=== PATIENT | female | born 1995 | race Caucasian/White ===

== ENCOUNTER 2024-10-02 23:39 | Observation (INO) | payer OTHER ==
[2024-10-03 00:03] VITALS: RESP 18; TEMP 98.4; BMI 21.7
[2024-10-03] MEDS: LACTATED RINGERS SOLUTION 1000 ML INFUS.BAG IV ONE (00:46)
[2024-10-03 00:50] LABS: HEMATOCRIT 44.5 % (32.4-45.2); HEMOGLOBIN 15.3 GM/dL (10.7-15.3); MCH 31.6 pg (25.7-33.7); MCHC 34.3 g/dl (32.0-36.0); MEAN PLT VOLUME 9.8 fl (7.5-11.1); PLATELET COUNT 178 10^3/uL (134-434); RBC 4.84 M/mm3 (3.60-5.2); RDW 12.8 % (11.6-15.6); WHITE BLOOD COUNT 10.5 K/mm3 (4.0-10.0)
[2024-10-03] MEDS ORDERED: ACETAMINOPHEN INJECTION 100 ML ONE (01:00)
[2024-10-03] MEDS: METOCLOPRAMIDE HCL INJECTION 10 MG/2 ML VIAL IVPB ONE (01:05)
[2024-10-03] MEDS: FAMOTIDINE 20 MG/50 ML IVPB 20 MG/50 ML MG IVPB ONE (01:05)
[2024-10-03] MEDS: ACETAMINOPHEN 1000 MG/100 ML BAG IVPB ONE (01:05)
[2024-10-03] MEDS: SODIUM CHLORIDE 0.9% 500 ML INFUS.BAG IV ONE (01:05)
[2024-10-03] MEDS: ONDANSETRON 4 MG/2 ML VIAL IVPUSH ONE (01:05)
[2024-10-03 01:20] LABS: ALBUMIN 4.1 g/dl (3.4-5.0); CALCIUM 9.6 mg/dL (8.5-10.1)
[2024-10-03 01:21] LABS: BLOOD UREA NITROGEN 21.7 mg/dL (7-18); MAGNESIUM 1.8 mg/dL (1.8-2.4)
[2024-10-03 01:24] LABS: CREATININE 1.1 mg/dL (0.55-1.3)
[2024-10-03 01:25] LABS: BILIRUBIN,TOTAL 1.2 mg/dL (0.2-1); TOT PROT 7.4 g/dl (6.4-8.2)
[2024-10-03 01:33] LABS: PHOSPHOROUS 0.7 mg/dL (2.5-4.9)
[2024-10-03] MEDS ORDERED: MAG HYDROX/AL HYDROX/SIMETH 30 ML UNIT-DOSE CUP ONE (02:07)
[2024-10-03] MEDS: MAG HYDROX/AL HYDROX/SIMETH 30 ML UNIT-DOSE CUP PO ONE (02:12)
[2024-10-03] MEDS: SODIUM PHOSPHATE - 15 MM in SODIUM CHLORIDE 250 ML IVPB ONE (02:39)
[2024-10-03 04:34] LABS: BILIRUBIN,DIRECT 0.3 mg/dL (0.0-0.2)
[2024-10-03 05:06] VITALS: BP 95/47; PULSE 68
[2024-10-03 07:40] LABS: HEMOGLOBIN 12.9 GM/dL (10.7-15.3); MCH 32.7 pg (25.7-33.7); MCHC 35.7 g/dl (32.0-36.0); MEAN CELL VOLUME 91.7 fl (80-96); MEAN PLT VOLUME 10.4 fl (7.5-11.1); PLATELET COUNT 147 10^3/uL (134-434); RBC 3.93 M/mm3 (3.60-5.2); RDW 12.5 % (11.6-15.6); WHITE BLOOD COUNT 5.8 K/mm3 (4.0-10.0)
[2024-10-03 08:00] LABS: POTASSIUM 3.7 mmol/L (3.5-5.1)
[2024-10-03 08:03] LABS: BLOOD UREA NITROGEN 18.4 mg/dL (7-18); MAGNESIUM 1.7 mg/dL (1.8-2.4)
[2024-10-03 08:06] LABS: CREATININE 0.8 mg/dL (0.55-1.3); PHOSPHOROUS 4.9 mg/dL (2.5-4.9)
[2024-10-03 08:07] LABS: BILIRUBIN,TOTAL 0.8 mg/dL (0.2-1)
[2024-10-03 08:08] LABS: TOT PROT 5.9 g/dl (6.4-8.2)
[2024-10-03 08:11] LABS: ALBUMIN 3.3 g/dl (3.4-5.0); CALCIUM 8.1 mg/dL (8.5-10.1)
[2024-10-03] MEDS: MAGNESIUM SULFATE IN WATER 2 GM/50 ML IVPB IVPB ONE (09:04)
[2024-10-03] MEDS ORDERED: MAGNESIUM OXIDE 400 MG TABLET (FP) PO ONE (09:09)
[2024-10-03] MEDS ORDERED: LEVOTHYROXINE NA 125 MCG TABLET (FP) PO SCH (10:00)
[2024-10-03] MEDS ORDERED: ESCITALOPRAM OXALATE 10 MG TABLET PO SCH (10:00)
[2024-10-03] MEDS ORDERED: ENOXAPARIN NA (PORCINE) 40 MG/0.4 ML DISP.SYRIN SQ SCH (10:00)
[2024-10-04] MEDS ORDERED: LEVOTHYROXINE NA 100 MCG TABLET (FP) PO SCH (10:00)
== END 2024-10-03 09:59 | disposition home or self-care (01) ==
LOC: JER 23:39 → JERBED 10-03 02:06
PROVIDERS: ADMIT Student in an Organized Health Care Education/Training Program; ATTEND Nurse Practitioner Acute Care
PROC: 3E033NZ Introduction of Analgesics, Hypnotics, Sedatives into Peripheral Vein, Percutaneous Approach (ICD-10-PCS; principal; 2024-10-03)
PROC: 3E033GC Introduction of Other Therapeutic Substance into Peripheral Vein, Percutaneous Approach (ICD-10-PCS; 2024-10-03)
PROC: 3E0337Z Introduction of Electrolytic and Water Balance Substance into Peripheral Vein, Percutaneous Approach (ICD-10-PCS; 2024-10-03)
DX: F41.9 Anxiety disorder, unspecified (principal); E03.9 Hypothyroidism, unspecified; F32.A Depression, unspecified; K90.0 Celiac disease; K52.9 Noninfective gastroenteritis and colitis, unspecified; E83.39 Other disorders of phosphorus metabolism; E83.42 Hypomagnesemia; R11.2 Nausea with vomiting, unspecified
CPT/HCPCS: 36415; 80053; 82248; 82438; 82652; 83735; 83993; 84100; 84302; 84703; 84999; 85025; 85027; 87205; 93005; 93010; 99291; G0378; J0131